=== PATIENT | male | born 1980 | race Caucasian/White ===

== ENCOUNTER 2017-10-11 20:46 | Emergency (ER) | payer OTHER ==
[~2017-10-11] VITALS: Ht 172.7 cm; Wt 69.1 kg
[2017-10-11 21:04] VITALS: Ht 172.7 cm; Wt 69.1 kg
[2017-10-11] MEDS ORDERED: HYDROCODONE-APA1 TAB PO (23:58)
[2017-10-12 00:38] VITALS: BP 124/74
== END 2017-10-12 00:39 | disposition home or self-care (01) ==
LOC: D.ER 20:46
DX: S51.812A Laceration without foreign body of left forearm, initial encounter (principal); W26.8XXA Contact with other sharp object(s), not elsewhere classified, initial encounter; Y93.89 Activity, other specified; Y92.89 Other specified places as the place of occurrence of the external cause; S70.11XA Contusion of right thigh, initial encounter; S71.111A Laceration without foreign body, right thigh, initial encounter; F17.200 Nicotine dependence, unspecified, uncomplicated